=== PATIENT | male | born 1965 | race African-American/Black ===

== ENCOUNTER 2019-05-30 16:28 | Emergency (ER) | payer OTHER ==
[~2019-05-30] VITALS: Ht 177.8 cm; Wt 110.0 kg
[2019-05-30] MEDS ORDERED: PROZ10 PO (16:49)
[2019-05-30] MEDS ORDERED: ATOR10TA84 PO (16:49)
[2019-05-30] MEDS ORDERED: KETOROLAC TROMETHAMINE 60 MG/2 ML VIAL IM ONE (18:30)
[2019-05-30] MEDS ORDERED: CYCLOBENZAPRINE HCL 10 MG TABLET PO ONE (18:30)
[2019-05-30 19:38] VITALS: BP 145/90
== END 2019-05-30 20:01 | disposition home or self-care (01) ==
LOC: EMS 16:30
DX: S39.012A Strain of muscle, fascia and tendon of lower back, initial encounter (principal); I10 Essential (primary) hypertension; F32.9 Major depressive disorder, single episode, unspecified; Z98.890 Other specified postprocedural states; Z79.899 Other long term (current) drug therapy; X50.0XXA Overexertion from strenuous movement or load, initial encounter; Y93.89 Activity, other specified; Y92.89 Other specified places as the place of occurrence of the external cause; Y99.8 Other external cause status
CPT/HCPCS: 96372; 99283; J1885

== ENCOUNTER 2019-07-14 17:30 | Emergency (ER) | payer OTHER ==
[~2019-07-14] VITALS: Ht 172.7 cm; Wt 111.4 kg
[~2019-07-14 17:30] MED LIST: ATOR10TA84 PO; PROZ10 PO
[2019-07-14] MEDS ORDERED: ARIP2 PO (18:21)
[2019-07-14 19:46] VITALS: BP 144/77
== END 2019-07-14 19:50 | disposition home or self-care (01) ==
LOC: EMS 17:33
DX: L03.211 Cellulitis of face (principal); R59.9 Enlarged lymph nodes, unspecified; L73.9 Follicular disorder, unspecified